=== PATIENT | female | born 1995 | race Caucasian/White ===

== ENCOUNTER → 2025-03-25 | Outpatient (CLI) | payer BC, SELFPAY ==
--- NOTE | 2025-03-25 16:10 | RAD_ITS ---
PROCEDURE: LEFT ANKLE MIN 3 VIEWS 03/25/2025 REASON FOR EXAM: PAIN TECHNIQUE: Procedure Code: RADANK Modality: DX Procedure: ANKLE MIN 3 VIEWS Laterality: Left COMPARISON: None. FINDINGS: No acute fracture or dislocation. Alignment is anatomic. Preserved joint spaces. No aggressive osseous lesion. Mild generalized soft tissue swelling about the ankle. RAD/Ankle min 3 Views IMPRESSION: No acute fracture or dislocation. Mild soft tissue swelling may represent ankle sprain. Reading Location: [id number]
== END | disposition home or self-care (01) ==
LOC: MTRAD 16:08
DX: S93.402A Sprain of unspecified ligament of left ankle, initial encounter (principal); S90.02XA Contusion of left ankle, initial encounter
CPT/HCPCS: 73610